=== PATIENT | male | born 1995 | race African-American/Black ===

== ENCOUNTER 2018-01-31 22:26 | Emergency (ER) | payer OTHER ==
[~2018-01-31] VITALS: Ht 190.5 cm; Wt 71.7 kg
--- NOTE | 2018-01-31 22:48 | PHYS DOC ---
Past History Additional Past Medical Histor: depression Additional Past Surgical Histo: [facility] [[email or web address] Adult General Chief Complaint Chief Complaint: FOREIGN BODY HPI HPI Patient is a 22-year-old male who arrives from a local nursing home, who told officers that at about 9 PM, he reportedly swallowed a single razor blade. He states he was not doing this to harm himself, he did this to avoid detection. He has no other complaints at this time.He is not having any pain. He states he feels as if it might be in his throat. The officers, who called report to the facility prior to the patient's arrival, were uncertain of the veracity of the patient's reported story. There are not convinced he actually swallowed a razor blade. The patient has no other complaints at this time. He denies that he did this as an attempt at self-harm, and denies current suicidal ideation. Review of Systems Review of Systems Constitutional: Denies fever or chills [] Eyes: Denies change in visual acuity, redness, or eye pain [] HENT: Denies nasal congestion or sore throat [] Respiratory: Denies cough or shortness of breath [] Cardiovascular: The patient denies any shortness of breath, chest pain, palpitations, or orthopnea [] GI: Denies abdominal pain, nausea, vomiting, bloody stools or diarrhea [] : Denies dysuria or hematuria [] Musculoskeletal: Denies back pain or joint pain [] Integument: Denies rash or skin lesions [] Neurologic: Denies headache, focal weakness or sensory changes [] Endocrine: Denies polyuria or polydipsia [] All other systems were reviewed and found to be within normal limits, except as documented in this note. Physical Exam Physical Exam PHYSICAL EXAM: CONSTITUTIONAL: Well developed, well nourished HEAD: normocephalic, atraumatic EENT: PERRL, EOMI. Conjunctivae normal color, sclerae non-icteric; moist mucous membranes. The oropharynx is clear without any wounds. NECK: Supple, non-tender; no meningismus. LUNGS: Lungs CTA, breathing even and unlabored. Normal air movement. HEART: Regular rate and rhythm, no murmur CHEST: No deformity; non-tender ABDOMEN: The abdomen is soft, and non-tender, no masses or bruits. EXTREM: Normal ROM; no deformity, no calf tenderness. Normal pulses palpable in all extremities. There is no pedal edema. SKIN: No rash; no diaphoresis NEURO: Alert; normal speech and cognition; CN's grossly intact; strength grossly intact without focal deficit. BACK: No CVA TTP. EKG EKG [] Radiology/Procedures Radiology/Procedures ER physician preliminary abdominal x-ray interpretation: There is a razor blade visualized in the stomach without other acute abnormality noted. No free air in the mediastinum or abdomen. Course & Med Decision Making Course & Med Decision Making Pertinent Imaging studies reviewed. (See chart for details) [11:10 PM: The patient's condition remains a stable. He has a razor blade in his stomach which should be removed to prevent the possibility of intestinal perforation. I spoke with Dr. Gutierrez, GI at [facility] who will see the patient for endoscopy this evening upon his transfer to [facility]. I spoke with Dr. Lovelace, ER physician as well. Given the anticipated delay in obtaining ambulance transport, the patient is with officers and is stable for transport via private vehicle in the care of the corrections officers, as it once the razor blade with past be on the pylorus it would become more difficult to retrieve, so timeliness of transfer is a consideration to warrant stable private vehicle transfer.] Dragon Disclaimer Dragon Disclaimer This electronic medical record was generated, in whole or in part, using a voice recognition dictation system. Departure Departure: Impression: Primary Impression: Gastric foreign body Disposition: 02 XFER SHT-TRM HOSP ([facility] via POV) Condition: STABLE Referrals: PCP,NO (PCP) CORKY NAVARRETE MD Jan 31, 2018 22:48
[2018-01-31 23:50] VITALS: BP 157/78
--- NOTE | 2018-02-01 02:25 | RAD ---
Acute abdominal series to include a PA chest radiograph 01/31/2018 Clinical History: Patient swallowed a razor blade 2 hours ago. A PA digital radiograph of the chest was obtained. Supine and two erect AP digital radiographs of the abdomen/pelvis were obtained. No previous studies are available for comparison. The cardiac and mediastinal silhouettes are within normal limits in size and configuration. No pulmonary infiltrate is seen. No pleural effusion or pneumothorax is noted. A 2 cm linear metallic density overlies the body of the stomach consistent with the patient's history of ingesting a razor blade. No additional radiopaque foreign body is seen. The abdominal bowel gas pattern is nonobstructive. There is no evidence of free air. No radiopaque calculus is seen. The osseous structures are grossly intact. Impression: Foreign body consistent with the patient's history of ingesting a razor blade is seen within the body of the stomach. Electronically signed by: Venkat Jose MD (02/01/2018 2:21 AM) [facility]
== END 2018-02-01 00:02 | disposition short-term general hospital (02) ==
LOC: EEVIPCON 22:26 → ER 22:26
DX: T18.2XXA Foreign body in stomach, initial encounter (principal); F32.9 Major depressive disorder, single episode, unspecified; X58.XXXA Exposure to other specified factors, initial encounter; Y93.89 Activity, other specified; Y92.89 Other specified places as the place of occurrence of the external cause; Y99.8 Other external cause status
CPT/HCPCS: 74022; 99285

== ENCOUNTER → 2019-09-12 | Outpatient (CLI) | payer OTHER ==
--- NOTE | 2019-09-12 15:13 | RAD ---
EXAM: Ultrasound neck soft tissues. HISTORY: Palpable focus posterior neck. COMPARISON: None. FINDINGS: Sonography of the site of palpable concern along the posterior neck was performed. This reveals an immediately subcutaneous lymph node measuring 11 x 7 x 2 mm. It has a fatty hilus and appears benign. There is no suspicious sonographic finding. IMPRESSION: 1. The palpable focus corresponds with a benign-appearing lymph node. Recommend ongoing clinical follow-up of palpable foci. Electronically signed by: Diya Read MD (09/12/2019 3:09 PM) [id number]
--- NOTE | 2019-09-12 15:16 | RAD ---
EXAM: CT right hand/wrist without contrast. HISTORY: Right hand pain and swelling. TECHNIQUE: CT of the right hand and wrist was performed without intravenous contrast. One or more of the following individualized dose reduction techniques were utilized for this examination: 1. Automated exposure control. 2. Adjustment of the mA and/or kV according to patient size. 3. Use of iterative reconstruction technique. COMPARISON: None. FINDINGS: No fractures are identified acutely. A chronic healed fracture of the fifth metacarpal is suspected. Joint spaces and alignment are maintained throughout. No erosions are identified. Soft tissue windows reveal no abnormality along the extensor compartments, carpal tunnel or flexor/extensor apparatuses. There is no intrinsic muscle atrophy. IMPRESSION: 1. No acute fracture or clear degenerative change. Correlate for the site of concern. Electronically signed by: Diya Read MD (09/12/2019 3:13 PM) [id number]
== END | disposition home or self-care (01) ==
LOC: EEVIPCON 12:23 → CT 12:23
PROVIDERS: ATTEND Preventive Medicine Occupational Medicine
DX: R22.1 Localized swelling, mass and lump, neck (principal); M79.641 Pain in right hand
CPT/HCPCS: 73200; 76536

== ENCOUNTER → 2020-09-23 | Outpatient (CLI) | payer OTHER ==
--- NOTE | 2020-09-23 11:19 | RAD ---
EXAMINATION: CT THORAX WO (CT CHEST WITHOUT IV CONTRAST) CLINICAL HISTORY: POSTERIOR LEFT SIDED RIB PAIN Technique: Spiral CT acquisition of the chest from the thoracic inlet to the upper abdomen without co ntrast. CT Dose Reduction Employed: One or more of the following individualized dose reduction techniques wer e utilized for this examination: 1. Automated exposure control 2. Adjustment of the mA and/or kV ac cording to patient size 3. Use of iterative reconstruction technique. Comparison: None FINDINGS: Lung Parenchyma, Pleura, and Airways: No consolidation. Old calcified granulomatous disease. Tiny per ifissural nodules along the right minor and left major fissures. No pleural effusion. Central airways patent. Lower Neck, Mediastinum, and Heart: Visualized thyroid gland within normal limits. No mediastinal, hi lar, or axillary lymphadenopathy. Thoracic aorta and main pulmonary artery normal in caliber. Normal heart size. No pericardial effusion. Bones and Soft Tissues: No evidence of acute osseous abnormality or destructive osseous lesion. Upper Abdomen: Partially visualized upper abdomen unremarkable. IMPRESSION: No evidence of acute cardiopulmonary or osseous abnormality. Electronically signed by: Sg Blandon DO (09/23/2020 11:16 AM) [facility]
== END ==
LOC: CT 10:23
PROVIDERS: ATTEND Preventive Medicine Occupational Medicine
DX: R07.81 Pleurodynia (principal)
CPT/HCPCS: 71250